=== PATIENT | male | born 1980 | race Caucasian/White ===

== ENCOUNTER 2017-01-23 14:38 | Inpatient (IN) | payer MEDICAID ==
[2017-01-23] MEDS ORDERED: Sodium Chloride 0.9% 10 ML Syringe FLUSH PRN ×2 (14:50)
--- NOTE | 2017-01-23 14:58 | EDM.PDOC ---
ED HPI GENERAL MEDICAL PROBLEM - General Chief Complaint: Headache Stated Complaint: UNABLE TO URINATE, WEAKNESS, SOB Time Seen by Provider: 01/23/17 14:40 Source of Information: Reports: Patient History Limitations: Reports: Other (no old records immediately available, from [place].) - History of Present Illness INITIAL COMMENTS - FREE TEXT/NARRATIVE: 36 yo male 1/2 ppd smoker from [place], [place] presents from his home for evaluation of diaphoresis, cough, mild SOB, and a TRAORE that has been progressive for a couple of days. Is taking Aleve one every 4 hrs and drinking Gatorade. Has no doctor yet states that "every doctor in [place] is a quack" which is why he came here today. Is here alone. Is on no other medication besides Aleve and more recently Excedrin Migraine. Reports not urinating since yesterday. Onset: Gradual Onset Date: 01/21/17 Duration: Day(s):, Getting Worse Location: Reports: Head, Chest Quality: Reports: Ache (headache) Severity: Moderate Improves with: Reports: Medication (Aleve) Worsens with: Reports: Other (Time, exertion) Context: Reports: Other (unknown) Associated Symptoms: Reports: Cough (Dry), Diaphoresis (intermittently, bret at night.), Headaches, Shortness of Breath (constantly, bret with exertion. ). Denies: Nausea/Vomiting Treatments [employer]ET [employer]SEM[employer]ER: Reports: NSAIDS (Aleve or Excedrin Migraine) Headache Pain Score (Numeric/FACES): 5 - Related Data Allergies Allergy/AdvReac Type Severity Reaction Status Date / Time No Known Allergies Allergy Verified 01/23/17 14:45 Home Meds: Home Meds Naproxen Sodium [Aleve] 220 mg PO Q4HR PRN 01/23/17 [History] Social & Family History - Tobacco Use Smoking Status *Q: Current Every Day Smoker Years of Tobacco use: 20 Packs/Tins Daily: 0.5 - Caffeine Use Caffeine Use: Reports: None - Recreational Drug Use Recreational Drug Use: No ED ROS GENERAL - Review of Systems Review Of Systems: See Below Constitutional: Reports: Malaise, Weakness, Diaphoresis, Decreased Appetite. Denies: Fever, Chills HEENT: Reports: No Symptoms Respiratory: Reports: Shortness of Breath, Cough (dry). Denies: Wheezing, Sputum, Hemoptysis Cardiovascular: Reports: No Symptoms (Unaware of his tachycardia) Endocrine: Reports: No Symptoms GI/Abdominal: Reports: Decreased Appetite. Denies: Constipation, Diarrhea, Hematemesis, Hematochezia, Melena, Nausea, Stool Incontinence, Vomiting : Reports: Other (Decreased urination, none since yesterday reported.) Musculoskeletal: Reports: No Symptoms Skin: Reports: Diaphoresis (at times, bed clothes wet at night.). Denies: Rash Neurological: Reports: No Symptoms Psychiatric: Reports: No Symptoms ED EXAM, GENERAL - Physical Exam Exam: See Below Exam Limited By: No Limitations General Appearance: Alert, WD/WN, No Apparent Distress Eye Exam: Bilateral Eye: Normal Inspection, PERRL Ears: Normal External Exam, Normal Canal, Hearing Grossly Normal, Normal TMs Ear Exam: Bilateral Ear: Auricle Normal, Canal Normal, TM normal Nose: Normal Inspection, Normal Mucosa, No Blood Throat/Mouth: Normal Inspection, Normal Lips, Normal Oropharynx, Normal Voice, No Airway Compromise, Other (poor dentitian) Head: Atraumatic, Normocephalic Neck: Normal Inspection, Supple, Non-Tender Respiratory/Chest: No Respiratory Distress, Lungs Clear, Normal Breath Sounds, No Accessory Muscle Use, Chest Non-Tender, Other (Frequent dry cough.) Cardiovascular: Regular Rate, Rhythm, No Edema, No JVD, No Murmur, No Rub, Tachycardia GI/Abdominal: Normal Bowel Sounds, Soft, Non-Tender, No Distention Back Exam: Normal Inspection. No: CVA Tenderness (R), CVA Tenderness (L) Extremities: Normal Inspection, Normal Range of Motion, Non-Tender, No Pedal Edema Neurological: Alert, Oriented, CN II-XII Intact, Normal Cognition, Normal Gait, No Motor/Sensory Deficits Psychiatric: Normal Affect, Normal Mood Skin Exam: Warm, Dry, Intact, Normal Color, No Rash Lymphatic: No Adenopathy Course - Vital Signs Text/Narrative:: Dr. Denson called @ 1555h Last Recorded V/S: Last Vital Signs Temp 36.9 C 01/23/17 14:48 Pulse 139 H 01/23/17 14:48 Resp 20 01/23/17 14:48 BP 135/95 H 01/23/17 14:48 Pulse Ox 96 01/23/17 14:48 - Orders/Labs/Meds Orders: Active Orders 24 hr Category Date Time Status Cardiac Monitoring [RC] .As Directed Care 01/23/17 14:45 Active Chest 2V [CR] Stat Exams 01/23/17 14:52 Taken CULTURE BLOOD [BC] Urgent Lab 01/23/17 15:43 Received CULTURE BLOOD [BC] Urgent Lab 01/23/17 15:50 Received Levofloxacin/Dextrose 5%-Water [Levaquin in D5W 750 MG/ Med 01/23/17 15:30 Active 150 ML] 750 mg Premix Bag 1 bag IV Q24H Sodium Chloride 0.9% [Saline Flush] Med 01/23/17 14:50 Active 10 ml FLUSH ASDIRECTED PRN Sodium Chloride 0.9% [Saline Flush] Med 01/23/17 14:50 Active 10 ml FLUSH ASDIRECTED PRN Blood Culture x2 Reflex Set [OM.PC] Urgent Oth 01/23/17 15:22 Ordered Saline Lock Insert [OM.PC] Routine Oth 01/23/17 14:50 Ordered Saline Lock Insert [OM.PC] Routine Oth 01/23/17 14:50 Ordered Medication Orders Levofloxacin/Dextrose 750 mg/ (Premix) 150 mls @ 100 mls/hr IV Q24H HAILEE Last Admin: 01/23/17 15:51 Dose: 100 mls/hr Sodium Chloride (Saline Flush) 10 ml FLUSH ASDIRECTED PRN PRN Reason: Keep Vein Open Last Admin: 01/23/17 15:36 Dose: 10 ml Sodium Chloride (Saline Flush) 10 ml FLUSH ASDIRECTED PRN PRN Reason: Keep Vein Open Labs: Laboratory Tests 01/23/17 01/23/17 01/23/17 Range/Units 15:00 15:00 15:00 WBC 23.9 H (4.5-12.0) X10-3/uL RBC 4.90 (4.30-5.75) x10(6)uL Hgb 14.8 (11.5-15.5) g/dL Hct 44.3 (30.0-51.3) % MCV 90.4 (80-96) fL MCH 30.1 (27.7-33.6) pg MCHC 33.3 (32.2-35.4) g/dL RDW 13.0 (11.5-15.5) % Plt Count 369 (125-369) X10(3)uL D-Dimer, Quantitative (100-400) ng/mL Sodium 127 L (135-145) mmol/L Potassium 3.6 (3.5-5.3) mmol/L Chloride 97 L (100-110) mmol/L Carbon Dioxide 22 L (23-29) mmol/L BUN 14 (5-20) mg/dL Creatinine 1.1 (0.6-1.3) mg/dL Est Cr Clr Drug Dosing 106.90 mL/min Estimated GFR (MDRD) > 60 (>60) BUN/Creatinine Ratio 12.7 (9-20) Glucose 153 H (80-116) mg/dL Lactic Acid (0.5-2.2) mmol/L Calcium 11.3 H (8.6-10.2) mg/dL Total Bilirubin 0.8 (0.1-1.3) mg/dL AST 46 H (5-27) IU/L ALT 48 H (14-26) IU/L Alkaline Phosphatase 108 (56-112) IU/L Troponin I < 0.01 L (0.02-0.06) NG/ML Total Protein 7.6 (6.0-8.0) g/dL Albumin 3.2 L (3.5-5.2) g/dL Globulin 4.4 g/dL Albumin/Globulin Ratio 0.7 TSH, Ultra Sensitive (0.4-5.5) nlU/mL Urine Color (YELLOW) Urine Appearance (CLEAR) Urine pH (5.0-6.5) Ur Specific [place] (1.010-1.025) Urine Protein (NEGATIVE) mg/dL Urine Glucose (UA) (NEGATIVE) mg/dL Urine Ketones (NEGATIVE) mg/dL Urine Occult Blood (NEGATIVE) Urine Nitrite (NEGATIVE) Urine Bilirubin (NEGATIVE) Urine Urobilinogen (NEGATIVE) mg/dL Ur Leukocyte Esterase (NEGATIVE) Urine RBC (0) Urine WBC (0) Ur Squamous Epith Cells (NS,R,O) Amorphous Sediment Urine Bacteria (NS) Urine Mucus (NS) Urine Opiates Screen (NEGATIVE) Ur Oxycodone Screen (NEGATIVE) Ur Propoxyphene Screen (NEGATIVE) Ur Barbituates Screen (NEGATIVE) Ur Tricyclics Screen (NEGATIVE) Ur Phencyclidine Scrn (NEGATIVE) Ur Amphetamine Screen (NEGATIVE) Urine MDMA Screen (NEGATIVE) U Benzodiazepines Scrn (NEGATIVE) U Cocaine Metab Screen (NEGATIVE) U Marijuana (THC) Screen (NEGATIVE) 01/23/17 01/23/17 01/23/17 Range/Units 15:00 15:00 15:00 WBC (4.5-12.0) X10-3/uL RBC (4.30-5.75) x10(6)uL Hgb (11.5-15.5) g/dL Hct (30.0-51.3) % MCV (80-96) fL MCH (27.7-33.6) pg MCHC (32.2-35.4) g/dL RDW (11.5-15.5) % Plt Count (125-369) X10(3)uL D-Dimer, Quantitative 2560 H (100-400) ng/mL Sodium (135-145) mmol/L Potassium (3.5-5.3) mmol/L Chloride (100-110) mmol/L Carbon Dioxide (23-29) mmol/L BUN (5-20) mg/dL Creatinine (0.6-1.3) mg/dL Est Cr Clr Drug Dosing mL/min Estimated GFR (MDRD) (>60) BUN/Creatinine Ratio (9-20) Glucose (80-116) mg/dL Lactic Acid 2.2 (0.5-2.2) mmol/L Calcium (8.6-10.2) mg/dL Total Bilirubin (0.1-1.3) mg/dL AST (5-27) IU/L ALT (14-26) IU/L Alkaline Phosphatase (56-112) IU/L Troponin I (0.02-0.06) NG/ML Total Protein (6.0-8.0) g/dL Albumin (3.5-5.2) g/dL Globulin g/dL Albumin/Globulin Ratio TSH, Ultra Sensitive 0.22 L (0.4-5.5) nlU/mL Urine Color (YELLOW) Urine Appearance (CLEAR) Urine pH (5.0-6.5) Ur Specific [place] (1.010-1.025) Urine Protein (NEGATIVE) mg/dL Urine Glucose (UA) (NEGATIVE) mg/dL Urine Ketones (NEGATIVE) mg/dL Urine Occult Blood (NEGATIVE) Urine Nitrite (NEGATIVE) Urine Bilirubin (NEGATIVE) Urine Urobilinogen (NEGATIVE) mg/dL Ur Leukocyte Esterase (NEGATIVE) Urine RBC (0) Urine WBC (0) Ur Squamous Epith Cells (NS,R,O) Amorphous Sediment Urine Bacteria (NS) Urine Mucus (NS) Urine Opiates Screen (NEGATIVE) Ur Oxycodone Screen (NEGATIVE) Ur Propoxyphene Screen (NEGATIVE) Ur Barbituates Screen (NEGATIVE) Ur Tricyclics Screen (NEGATIVE) Ur Phencyclidine Scrn (NEGATIVE) Ur Amphetamine Screen (NEGATIVE) Urine MDMA Screen (NEGATIVE) U Benzodiazepines Scrn (NEGATIVE) U Cocaine Metab Screen (NEGATIVE) U Marijuana (THC) Screen (NEGATIVE) 01/23/17 01/23/17 Range/Units 15:12 15:12 WBC (4.5-12.0) X10-3/uL RBC (4.30-5.75) x10(6)uL Hgb (11.5-15.5) g/dL Hct (30.0-51.3) % MCV (80-96) fL MCH (27.7-33.6) pg MCHC (32.2-35.4) g/dL RDW (11.5-15.5) % Plt Count (125-369) X10(3)uL D-Dimer, Quantitative (100-400) ng/mL Sodium (135-145) mmol/L Potassium (3.5-5.3) mmol/L Chloride (100-110) mmol/L Carbon Dioxide (23-29) mmol/L BUN (5-20) mg/dL Creatinine (0.6-1.3) mg/dL Est Cr Clr Drug Dosing mL/min Estimated GFR (MDRD) (>60) BUN/Creatinine Ratio (9-20) Glucose (80-116) mg/dL Lactic Acid (0.5-2.2) mmol/L Calcium (8.6-10.2) mg/dL Total Bilirubin (0.1-1.3) mg/dL AST (5-27) IU/L ALT (14-26) IU/L Alkaline Phosphatase (56-112) IU/L Troponin I (0.02-0.06) NG/ML Total Protein (6.0-8.0) g/dL Albumin (3.5-5.2) g/dL Globulin g/dL Albumin/Globulin Ratio TSH, Ultra Sensitive (0.4-5.5) nlU/mL Urine Color Yellow (YELLOW) Urine Appearance Slightly cloudy (CLEAR) Urine pH 5.0 (5.0-6.5) Ur Specific [place] 1.025 (1.010-1.025) Urine Protein 100 H (NEGATIVE) mg/dL Urine Glucose (UA) 50 H (NEGATIVE) mg/dL Urine Ketones Negative (NEGATIVE) mg/dL Urine Occult Blood Large H (NEGATIVE) Urine Nitrite Negative (NEGATIVE) Urine Bilirubin Small H (NEGATIVE) Urine Urobilinogen >=12 H (NEGATIVE) mg/dL Ur Leukocyte Esterase Negative (NEGATIVE) Urine RBC 20-30 H (0) Urine WBC 0-5 (0) Ur Squamous Epith Cells Occasional (NS,R,O) Amorphous Sediment Few Urine Bacteria Few H (NS) Urine Mucus Moderate H (NS) Urine Opiates Screen Negative (NEGATIVE) Ur Oxycodone Screen Negative (NEGATIVE) Ur Propoxyphene Screen Negative (NEGATIVE) Ur Barbituates Screen Negative (NEGATIVE) Ur Tricyclics Screen Negative (NEGATIVE) Ur Phencyclidine Scrn Negative (NEGATIVE) Ur Amphetamine Screen Negative (NEGATIVE) Urine MDMA Screen Negative (NEGATIVE) U Benzodiazepines Scrn Negative (NEGATIVE) U Cocaine Metab Screen Negative (NEGATIVE) U Marijuana (THC) Screen Negative (NEGATIVE) Meds: Medications Generic Name Dose Route Start Last Admin Trade Name Freq PRN Reason Stop Dose Admin Levofloxacin/Dextrose 750 mg/ 150 mls @ 100 mls/hr 01/23/17 15:30 01/23/17 15 :51 Premix IV 100 mls/hr Q24H HAILEE Administration Sodium Chloride 10 ml 01/23/17 14:50 01/23/17 15:36 Saline Flush FLUSH 10 ml ASDIRECTED PRN Administration Keep Vein Open Sodium Chloride 10 ml 01/23/17 14:50 Saline Flush FLUSH ASDIRECTED PRN Keep Vein Open Discontinued Medications Generic Name Dose Route Start Last Admin Trade Name Freq PRN Reason Stop Dose Admin Lactated Ringer's 1,000 mls @ 1,000 mls/hr 01/23/17 15:10 01/23/17 15:21 Ringers, Lactated IV 01/23/17 16:09 1,000 mls/hr BOLUS ONE Administration - Radiology Interpretation Free Text/Narrative:: CXR-pneumonia L > R Departure - Departure Time of Disposition: 16:30 Disposition: Admitted As Inpatient 65 Condition: Fair Clinical Impression: Mild dehydration Pneumonia Qualifiers: Pneumonia type: due to unspecified organism Laterality: bilateral Lung location : unspecified part of lung Qualified Code(s): J18.9 - Pneumonia, unspecified organism Hematuria Qualifiers: Hematuria type: unspecified type Qualified Code(s): R31.9 - Hematuria, unspecified - Discharge Information Referrals: PCP,Not In Area [Primary Care Provider] - Forms: ED Department Discharge - My Orders Last 24 Hours: My Active Orders 01/23/17 14:45 Cardiac Monitoring [RC] .As Directed 01/23/17 14:50 Sodium Chloride 0.9% [Saline Flush] 10 ml FLUSH ASDIRECTED PRN Sodium Chloride 0.9% [Saline Flush] 10 ml FLUSH ASDIRECTED PRN Saline Lock Insert [OM.PC] Routine Saline Lock Insert [OM.PC] Routine 01/23/17 14:52 Chest 2V [CR] Stat 01/23/17 15:22 Blood Culture x2 Reflex Set [OM.PC] Urgent 01/23/17 15:30 Levofloxacin/Dextrose 5%-Water [Levaquin in D5W 750 MG/150 ML] 750 mg Premix Bag 1 bag IV Q24H 01/23/17 15:43 CULTURE BLOOD [BC] Urgent 01/23/17 15:50 CULTURE BLOOD [BC] Urgent - Assessment/Plan Last 24 Hours: My Active Orders 01/23/17 14:45 Cardiac Monitoring [RC] .As Directed 01/23/17 14:50 Sodium Chloride 0.9% [Saline Flush] 10 ml FLUSH ASDIRECTED PRN Sodium Chloride 0.9% [Saline Flush] 10 ml FLUSH ASDIRECTED PRN Saline Lock Insert [OM.PC] Routine Saline Lock Insert [OM.PC] Routine 01/23/17 14:52 Chest 2V [CR] Stat 01/23/17 15:22 Blood Culture x2 Reflex Set [OM.PC] Urgent 01/23/17 15:30 Levofloxacin/Dextrose 5%-Water [Levaquin in D5W 750 MG/150 ML] 750 mg Premix Bag 1 bag IV Q24H 01/23/17 15:43 CULTURE BLOOD [BC] Urgent 01/23/17 15:50 CULTURE BLOOD [BC] Urgent
[2017-01-23] MEDS ORDERED: Lactated Ringers 1,000 ML IV ONE (15:10)
[2017-01-23] MEDS ORDERED: Levofloxacin/Dextrose 5%-Water 750 MG in Premix Bag 1 BAG IV SCH (15:30)
[2017-01-23] MEDS ORDERED: Albuterol 0.083% 2.5 MG/3 ML Neb Soln NEB PRN (17:40)
[2017-01-23] MEDS ORDERED: Ondansetron 4 MG Tab.DIS PO PRN (17:40)
--- NOTE | 2017-01-23 17:49 | PCM.HP ---
H&P History of Present Illness - General Date of Service: 01/23/17 Admit Problem/Dx: Admission Diagnosis/Problem Admission Diagnosis/Problem Pneumonia Source of Information: Patient History Limitations: Reports: No Limitations - History of Present Illness Initial Comments - Free Text/Narative: This is a 36-year-old male patient from [facility]. He said 5 days of feeling weak, diaphoretic, headache, fevers, chills, decreased appetite, cough and some shortness of breath. He was exposed to his daughter 2 weeks ago who had pneumonia. He was seen in the ER and diagnosed with a left lower lobe pneumonia with a little bit on the right middle lobe. Greater on the left than on the right. Headache Pain Score (Numeric/FACES): 5 - Related Data Allergies/Adverse Reactions: Allergies Allergy/AdvReac Type Severity Reaction Status Date / Time No Known Allergies Allergy Verified 01/23/17 14:45 Home Medications: Home Meds Naproxen Sodium [Aleve] 220 mg PO Q4HR PRN 01/23/17 [History] Past Medical History - Past Health History Medical/Surgical History: Denies Medical/Surgical History Social & Family History - Tobacco Use Smoking Status *Q: Current Every Day Smoker Years of Tobacco use: 20 Packs/Tins Daily: 0.5 - Caffeine Use Caffeine Use: Reports: None - Recreational Drug Use Recreational Drug Use: No H&P Review of Systems - Review of Systems: Review Of Systems: See Below General: Reports: Fever, Chills, Malaise, Weakness, Night Sweats, Diaphoresis HEENT: Reports: No Symptoms Pulmonary: Reports: Shortness of Breath, Cough, Sputum. Denies: Wheezing, Pleuritic Chest Pain, Hemoptysis Cardiovascular: Reports: No Symptoms Gastrointestinal: Reports: No Symptoms Genitourinary: Reports: No Symptoms Musculoskeletal: Reports: No Symptoms Skin: Reports: No Symptoms Psychiatric: Reports: No Symptoms Neurological: Reports: No Symptoms Hematologic/Lymphatic: Reports: No Symptoms Immunologic: Reports: No Symptoms Exam - Exam Exam: See Below - Vital Signs Vital Signs: Last Vital Signs Temp 98.4 F 01/23/17 14:48 Pulse 139 H 01/23/17 14:48 Resp 20 01/23/17 14:48 BP 135/95 H 01/23/17 14:48 Pulse Ox 96 01/23/17 14:48 Weight: 269 lb - Exam General: Alert, Oriented, Cooperative HEENT: PERRLA, Hearing Intact, Mucosa Moist & [place], Posterior Pharynx Clear, TMs Clear Neck: Supple, Trachea Midline Lungs: Normal Respiratory Effort, Decreased Breath Sounds, Rales (Left) Cardiovascular: Regular Rate, Regular Rhythm, Normal S1, Normal S2, Tachycardia. No: Bradycardia, Systolic Murmur, Diastolic Murmur GI/Abdominal Exam: Normal Bowel Sounds, Soft, Non-Tender, No Distention Back Exam: Normal Inspection, Full Range of Motion Extremities: Normal Inspection, No Pedal Edema Skin: Warm, Dry, Intact Neurological: Normal Gait, Normal Speech Neuro Extensive - Mental Status: Alert, Oriented x3, Normal Mood/Affect, Normal Cognition Neuro Extensive - Motor, Sensory, Reflexes: Normal Gait Psychiatric: Alert, Normal Affect, Normal Mood - Patient Data Result Diagrams: 01/23/17 15:00 01/23/17 15:00 *Q Meaningful Use (ADM) - VTE *Q VTE Criteria *Q: - Stroke *Q Stroke Criteria *Q: - AMI *Q AMI Criteria *Q: - Problem List (1) Hematuria SNOMED Code(s): 07984914 ICD Code: R31.9 - HEMATURIA, UNSPECIFIED Status: Acute Current Visit: Yes Qualifiers: Hematuria type: unspecified type Qualified Code(s): R31.9 - Hematuria, unspecified (2) Mild dehydration SNOMED Code(s): 2805018987540 ICD Code: E86.0 - DEHYDRATION Status: Acute Current Visit: Yes (3) Pneumonia SNOMED Code(s): 201879560 ICD Code: J18.9 - PNEUMONIA, UNSPECIFIED ORGANISM Status: Acute Current Visit: Yes Qualifiers: Pneumonia type: due to unspecified organism Laterality: bilateral Lung location: unspecified part of lung Qualified Code(s): J18.9 - Pneumonia, unspecified organism Problem List Initiated/Reviewed/Updated: Yes Orders Last 24hrs: Active Orders 24 hr Category Date Time Status Patient Status [ADT] Routine ADT 01/23/17 17:40 Ordered Oxygen Therapy [RC] PRN Care 01/23/17 17:40 Ordered RT Aerosol Therapy [RC] ASDIRECTED Care 01/23/17 17:41 Ordered Up ad Stephania [RC] ASDIRECTED Care 01/23/17 17:40 Ordered VTE/DVT Education [RC] Per Unit Routine Care 01/23/17 17:40 Ordered Vital Signs [RC] Q4H Care 01/23/17 17:40 Ordered Regular Diet [DIET] Diet 01/23/17 Dinner Ordered CBC WITH AUTO DIFF [HEME] AM Lab 01/24/17 05:11 Ordered COMPREHENSIVE METABOLIC PN,CMP [CHEM] AM Lab 01/24/17 05:11 Ordered CULTURE SPUTUM + SMEAR [RM] Stat Lab 01/23/17 17:40 Uncollected Albuterol [Proventil Neb Soln] Med 01/23/17 17:40 Ordered 2.5 mg NEB Q4H PRN Codeine/guaiFENesin [Robitussin AC] Med 01/23/17 17:44 Ordered 5 ml PO Q6H PRN Ibuprofen [Motrin] Med 01/23/17 17:40 Ordered 600 mg PO Q6H PRN Levofloxacin/Dextrose 5%-Water [Levaquin in D5W 750 MG/ Med 01/23/17 17:45 Ordered 150 ML] 750 mg Premix Bag 1 bag IV Q24H Ondansetron [Zofran ODT] Med 01/23/17 17:40 Ordered 4 mg PO Q4H PRN Sodium Chloride 0.9% @ 150 MLS/HR (1000ml) Med 01/23/17 17:45 Ordered Sodium Chloride 0.9% [Normal Saline] 1,000 ml IV ASDIRECTED Resuscitation Status Routine Resus Stat 01/23/17 17:40 Ordered Medication Orders Albuterol (Proventil Neb Soln) 2.5 mg NEB Q4H PRN PRN Reason: Shortness Of Breath/wheezing Levofloxacin/Dextrose 750 mg/ (Premix) 150 mls @ 100 mls/hr IV Q24H HAILEE Last Admin: 01/23/17 15:51 Dose: 100 mls/hr Levofloxacin/Dextrose 750 mg/ (Premix) 150 mls @ 100 mls/hr IV Q24H HAILEE Sodium Chloride (Normal Saline) 1,000 mls @ 150 mls/hr IV ASDIRECTED HAILEE Ibuprofen (Motrin) 600 mg PO Q6H PRN PRN Reason: Pain (mild 1-3) Ondansetron HCl (Zofran Odt) 4 mg PO Q4H PRN PRN Reason: nausea, able to take PO Sodium Chloride (Saline Flush) 10 ml FLUSH ASDIRECTED PRN PRN Reason: Keep Vein Open Assessment/Plan Comment:: 1. Admit to inpatient. 2. Levaquin 750 iv daily. 3. Blood cultures, sputum cultures 4. Normal saline 150 mL an hour. 5. Up ad stephania. 6. Regular diet.
[2017-01-23] MEDS ORDERED: Codeine/guaiFENesin 100-10 MG/5 ML Syrup 5 ML Cup ONE (18:00)
[2017-01-23] MEDS ORDERED: Ibuprofen 600 MG Tab ONE (18:01)
[2017-01-23] MEDS: Ibuprofen 600 MG Tab PO PRN (18:03)
[2017-01-23] MEDS: Codeine/guaiFENesin 100-10 MG/5 ML Syrup 5 ML Cup PO PRN (18:04)
[2017-01-23] MEDS: Sodium Chloride 0.9% 1,000 ML IV SCH (21:22)
[2017-01-24] MEDS: Ibuprofen 600 MG Tab PO PRN ×3 (00:19→20:06)
[2017-01-24] MEDS: Sodium Chloride 0.9% 1,000 ML IV SCH ×3 (03:44→20:01)
--- NOTE | 2017-01-24 07:58 | PCM.PN ---
- General Info Date of Service: 01/24/17 Admission Dx/Problem (Free Text): Patient states his cough is dry 3 has not been able to give a sputum. He says he feels little short of breath lying down and when he walks. Denies fevers, chills or diaphoresis. Denies pleuritic chest pain. Patient states he never received a nebulizer since he's been in. - Patient Data Vitals - Most Recent: Last Vital Signs Temp 98.8 F 01/24/17 01:00 Pulse 110 H 01/24/17 01:00 Resp 18 01/24/17 01:00 BP 125/89 01/24/17 01:00 Pulse Ox 92 L 01/24/17 01:00 Weight - Most Recent: 194 lb 9.6 oz I&O - Last 24 Hours: Intake & Output 01/23/17 01/24/17 01/24/17 22:59 06:59 14:59 Intake Total 727 1160 Output Total 0 Balance 727 1160 Lab Results Last 24 Hours: Laboratory Results - last 24 hr 01/24/17 01/24/17 Range/Units 06:40 06:40 WBC 19.9 H (4.5-12.0) X10-3/uL RBC 4.57 (4.30-5.75) x10(6)uL Hgb 13.5 (11.5-15.5) g/dL Hct 41.0 (30.0-51.3) % MCV 89.6 (80-96) fL MCH 29.5 (27.7-33.6) pg MCHC 32.9 (32.2-35.4) g/dL RDW 12.9 (11.5-15.5) % Plt Count 344 (125-369) X10(3)uL MPV 7.7 (7.4-10.4) fL Add Manual Diff Yes Sodium 132 L (135-145) mmol/L Potassium 3.4 L (3.5-5.3) mmol/L Chloride 103 D (100-110) mmol/L Carbon Dioxide 21 L (23-29) mmol/L BUN 11 (5-20) mg/dL Creatinine 0.8 (0.6-1.3) mg/dL Est Cr Clr Drug Dosing 146.99 mL/min Estimated GFR (MDRD) > 60 (>60) BUN/Creatinine Ratio 13.8 (9-20) Glucose 114 (80-116) mg/dL Calcium 10.6 H (8.6-10.2) mg/dL Total Bilirubin 0.8 (0.1-1.3) mg/dL AST 43 H (5-27) IU/L ALT 48 H (14-26) IU/L Alkaline Phosphatase 105 (56-112) IU/L Total Protein 6.7 (6.0-8.0) g/dL Albumin 2.7 L (3.5-5.2) g/dL Globulin 4.0 g/dL Albumin/Globulin Ratio 0.7 Med Orders - Current: Current Medications Guaifenesin/Codeine Phosphate (Robitussin Ac) 5 ml PO Q6H PRN PRN Reason: Cough Last Admin: 01/23/17 18:04 Dose: 5 ml Levofloxacin/Dextrose 750 mg/ (Premix) 150 mls @ 100 mls/hr IV Q24H [facility] Sodium Chloride (Normal Saline) 1,000 mls @ 150 mls/hr IV ASDIRECTED [facility] Last Admin: 01/24/17 03:44 Dose: 150 mls/hr Ibuprofen (Motrin) 600 mg PO Q6H PRN PRN Reason: Pain (mild 1-3) Last Admin: 01/24/17 00:19 Dose: 600 mg Ondansetron HCl (Zofran Odt) 4 mg PO Q4H PRN PRN Reason: nausea, able to take PO Sodium Chloride (Saline Flush) 10 ml FLUSH ASDIRECTED PRN PRN Reason: Keep Vein Open Discontinued Medications Albuterol (Proventil Neb Soln) 2.5 mg NEB Q4H PRN PRN Reason: Shortness Of Breath/wheezing Guaifenesin/Codeine Phosphate (Robitussin Ac) Confirm Administered Dose 5 ml .ROUTE .STK-MED ONE Stop: 01/23/17 18:01 Last Admin: 01/23/17 18:20 Dose: Not Given Lactated Ringer's (Ringers, Lactated) 1,000 mls @ 1,000 mls/hr IV BOLUS ONE Stop: 01/23/17 16:09 Last Admin: 01/23/17 15:21 Dose: 1,000 mls/hr Levofloxacin/Dextrose 750 mg/ (Premix) 150 mls @ 100 mls/hr IV Q24H [facility] Last Admin: 01/23/17 15:51 Dose: 100 mls/hr Ibuprofen (Motrin) Confirm Administered Dose 600 mg .ROUTE .STK-MED ONE Stop: 01/23/17 18:02 Last Admin: 01/23/17 18:20 Dose: Not Given Sodium Chloride (Saline Flush) 10 ml FLUSH ASDIRECTED PRN PRN Reason: Keep Vein Open Last Admin: 01/23/17 15:36 Dose: 10 ml - Exam General: Alert, Oriented, Cooperative Lungs: Normal Respiratory Effort, Crackles (Left middle and lower lobe. Right lower lobe.) Cardiovascular: Regular Rate, Regular Rhythm, No Murmurs, Tachycardia Extremities: No Pedal Edema Psy/Mental Status: Alert, Normal Affect, Normal Mood - Problem List & Annotations (1) Hematuria SNOMED Code(s): 29537889 Code(s): R31.9 - HEMATURIA, UNSPECIFIED Status: Acute Current Visit: Yes Qualifiers: Hematuria type: unspecified type Qualified Code(s): R31.9 - Hematuria, unspecified (2) Mild dehydration SNOMED Code(s): 5246239042544 Code(s): E86.0 - DEHYDRATION Status: Acute Current Visit: Yes (3) Pneumonia SNOMED Code(s): 210657551 Code(s): J18.9 - PNEUMONIA, UNSPECIFIED ORGANISM Status: Acute Current Visit: Yes Qualifiers: Pneumonia type: due to unspecified organism Laterality: bilateral Lung location: unspecified part of lung Qualified Code(s): J18.9 - Pneumonia, unspecified organism (4) Hyponatremia SNOMED Code(s): 13475848 Code(s): E87.1 - HYPO-OSMOLALITY AND HYPONATREMIA Status: Acute Current Visit: Yes - Problem List Review Problem List Initiated/Reviewed/Updated: Yes - My Orders Last 24 Hours: My Active Orders 01/23/17 17:40 Patient Status [ADT] Routine Oxygen Therapy [RC] PRN Up ad Stephania [RC] ASDIRECTED Vital Signs [RC] 00,04,08,12,16,20 CULTURE SPUTUM + SMEAR [RM] Stat Ibuprofen [Motrin] 600 mg PO Q6H PRN Ondansetron [Zofran ODT] 4 mg PO Q4H PRN Resuscitation Status Routine 01/23/17 17:41 RT Aerosol Therapy [RC] ASDIRECTED 01/23/17 17:44 Codeine/guaiFENesin [Robitussin AC] 5 ml PO Q6H PRN 01/23/17 17:45 Sodium Chloride 0.9% [Normal Saline] 1,000 ml IV ASDIRECTED 01/23/17 Dinner Regular Diet [DIET] 01/24/17 06:40 CBC WITH AUTO DIFF [HEME] AM 01/24/17 08:00 Albuterol [Proventil Neb Soln] 2.5 mg NEB Q4H 01/24/17 16:00 Levofloxacin/Dextrose 5%-Water [Levaquin in D5W 750 MG/150 ML] 750 mg Premix Bag 1 bag IV Q24H - Plan Plan:: 1. I change the nebulizer from when necessary to 4 times a day and when necessary so he will get them. 2. Decrease IV fluid rate to 1 25 mL an hour with normal saline. 3. Continue Levaquin. 4. Up ad stephania. Encouraged patient to be up in the chair and walking. 5. Recheck BMP/CBC in the a.m.
[2017-01-24] MEDS ORDERED: traZODone 100 MG Tab PO SCH (08:15)
[2017-01-24] MEDS: Albuterol 0.083% 2.5 MG/3 ML Neb Soln NEB SCH ×4 (08:23→20:06)
[2017-01-24] MEDS: Levofloxacin/Dextrose 5%-Water 750 MG in Premix Bag 1 BAG IV SCH (16:18)
--- NOTE | 2017-01-24 16:44 | CR ---
INDICATION: Cough. CHEST: PA and lateral views of the chest were obtained 01/23/2017. No comparisons were available. The heart appeared normal in size and shape. Mediastinum and bony thorax were essentially unremarkable. Overlying EKG leads are noted. Areas of suspicious infiltration are noted in the right upper lobe posterolaterally and the left upper lobe posterolaterally. Infiltration centrally is also seen. The peripheral areas of infiltrate are fairly large, especially on the left, with central relative decreased density raising question of large abscess formation. The possibility of fungal disease would be a consideration with this appearance, although metastatic deposits could also be present. Findings should be correlated clinically. Additionally, there appears to be opacification at the left costophrenic angle, compatible with infiltrate in that area also. IMPRESSION: Hilar and peripheral areas of infiltration suspicious for fungal disease, although metastatic neoplastic process cannot be excluded. MTDD
[2017-01-24] MEDS: Codeine/guaiFENesin 100-10 MG/5 ML Syrup 5 ML Cup PO PRN (20:07)
[2017-01-24] MEDS: traZODone 50 MG Tab PO SCH (22:01)
[2017-01-25] MEDS: Albuterol 0.083% 2.5 MG/3 ML Neb Soln NEB SCH ×7 (00:20→23:57)
[2017-01-25] MEDS: Sodium Chloride 0.9% 1,000 ML IV SCH (03:59)
[2017-01-25] MEDS: Ibuprofen 600 MG Tab PO PRN ×2 (08:17→17:06)
[2017-01-25] MEDS: Codeine/guaiFENesin 100-10 MG/5 ML Syrup 5 ML Cup PO PRN (08:17)
--- NOTE | 2017-01-25 09:50 | PCM.PN ---
- General Info Date of Service: 01/25/17 Admission Dx/Problem (Free Text): Patient states his night sweats are better. Still has a dry cough and AMI be worse. His breathing is a bit better he states. No fevers, chills, nasal congestion. - Patient Data Vitals - Most Recent: Last Vital Signs Temp 97.6 F 01/25/17 04:00 Pulse 100 01/25/17 07:37 Resp 16 01/25/17 04:00 BP 132/78 01/25/17 04:00 Pulse Ox 99 01/25/17 07:34 Weight - Most Recent: 194 lb 9.6 oz I&O - Last 24 Hours: Intake & Output 01/24/17 01/25/17 01/25/17 22:59 06:59 14:59 Intake Total 985 889 Output Total 200 Balance 985 689 Lab Results Last 24 Hours: Laboratory Results - last 24 hr 01/25/17 01/25/17 Range/Units 06:30 06:30 WBC 16.8 H (4.5-12.0) X10-3/uL RBC 3.89 L (4.30-5.75) x10(6)uL Hgb 12.1 (11.5-15.5) g/dL Hct 35.2 (30.0-51.3) % MCV 90.4 (80-96) fL MCH 31.1 (27.7-33.6) pg MCHC 34.4 (32.2-35.4) g/dL RDW 13.1 (11.5-15.5) % Plt Count 311 (125-369) X10(3)uL MPV 7.8 (7.4-10.4) fL Add Manual Diff Yes Neutrophils % (Manual) 78 (46-82) % Band Neutrophils % 5 (0-6) % Lymphocytes % (Manual) 10 L (13-37) % Monocytes % (Manual) 6 (4-12) % Eosinophils % (Manual) 1 (0-5) % Sodium 137 (135-145) mmol/L Potassium 3.5 (3.5-5.3) mmol/L Chloride 108 D (100-110) mmol/L Carbon Dioxide 22 L (23-29) mmol/L BUN 13 (5-20) mg/dL Creatinine 0.8 (0.6-1.3) mg/dL Est Cr Clr Drug Dosing 146.99 mL/min Estimated GFR (MDRD) > 60 (>60) BUN/Creatinine Ratio 16.3 (9-20) Glucose 129 H (80-116) mg/dL Calcium 10.1 (8.6-10.2) mg/dL Med Orders - Current: Current Medications Albuterol (Proventil Neb Soln) 2.5 mg NEB Q4H [facility] Last Admin: 01/25/17 07:30 Dose: 2.5 mg Guaifenesin/Codeine Phosphate (Robitussin Ac) 5 ml PO Q6H PRN PRN Reason: Cough Last Admin: 01/25/17 08:17 Dose: 5 ml Levofloxacin/Dextrose 750 mg/ (Premix) 150 mls @ 100 mls/hr IV Q24H [facility] Last Admin: 01/24/17 16:18 Dose: 100 mls/hr Ibuprofen (Motrin) 600 mg PO Q6H PRN PRN Reason: Pain (mild 1-3) Last Admin: 01/25/17 08:17 Dose: 600 mg Ondansetron HCl (Zofran Odt) 4 mg PO Q4H PRN PRN Reason: nausea, able to take PO Sodium Chloride (Saline Flush) 10 ml FLUSH ASDIRECTED PRN PRN Reason: Keep Vein Open Trazodone HCl (Trazodone) 50 mg PO BEDTIME [facility] Last Admin: 01/24/17 22:01 Dose: 50 mg Discontinued Medications Albuterol (Proventil Neb Soln) 2.5 mg NEB Q4H PRN PRN Reason: Shortness Of Breath/wheezing Guaifenesin/Codeine Phosphate (Robitussin Ac) Confirm Administered Dose 5 ml .ROUTE .STK-MED ONE Stop: 01/23/17 18:01 Last Admin: 01/23/17 18:20 Dose: Not Given Lactated Ringer's (Ringers, Lactated) 1,000 mls @ 1,000 mls/hr IV BOLUS ONE Stop: 01/23/17 16:09 Last Admin: 01/23/17 15:21 Dose: 1,000 mls/hr Levofloxacin/Dextrose 750 mg/ (Premix) 150 mls @ 100 mls/hr IV Q24H [facility] Last Admin: 01/23/17 15:51 Dose: 100 mls/hr Sodium Chloride (Normal Saline) 1,000 mls @ 125 mls/hr IV ASDIRECTED [facility] Last Admin: 01/25/17 03:59 Dose: 150 mls/hr Ibuprofen (Motrin) Confirm Administered Dose 600 mg .ROUTE .STK-MED ONE Stop: 01/23/17 18:02 Last Admin: 01/23/17 18:20 Dose: Not Given Sodium Chloride (Saline Flush) 10 ml FLUSH ASDIRECTED PRN PRN Reason: Keep Vein Open Last Admin: 01/23/17 15:36 Dose: 10 ml Trazodone HCl (Trazodone) 50 mg PO BEDTIME [facility] - Exam General: Alert, Oriented Lungs: Normal Respiratory Effort, Crackles (Very fine left) Cardiovascular: Regular Rate, Regular Rhythm, No Murmurs, Tachycardia Extremities: No Pedal Edema - Problem List & Annotations (1) Hematuria SNOMED Code(s): 34079976 Code(s): R31.9 - HEMATURIA, UNSPECIFIED Status: Acute Current Visit: Yes Qualifiers: Hematuria type: unspecified type Qualified Code(s): R31.9 - Hematuria, unspecified (2) Mild dehydration SNOMED Code(s): 2457084937323 Code(s): E86.0 - DEHYDRATION Status: Acute Current Visit: Yes (3) Pneumonia SNOMED Code(s): 506452024 Code(s): J18.9 - PNEUMONIA, UNSPECIFIED ORGANISM Status: Acute Current Visit: Yes Qualifiers: Pneumonia type: due to unspecified organism Laterality: bilateral Lung location: unspecified part of lung Qualified Code(s): J18.9 - Pneumonia, unspecified organism (4) Hyponatremia SNOMED Code(s): 49965386 Code(s): E87.1 - HYPO-OSMOLALITY AND HYPONATREMIA Status: Acute Current Visit: Yes - Problem List Review Problem List Initiated/Reviewed/Updated: Yes - My Orders Last 24 Hours: My Active Orders 01/24/17 16:00 Levofloxacin/Dextrose 5%-Water [Levaquin in D5W 750 MG/150 ML] 750 mg Premix Bag 1 bag IV Q24H 01/24/17 21:00 traZODone 50 mg PO BEDTIME 01/25/17 09:35 Convert IV to Saline Lock [OM.PC] Routine 01/25/17 09:36 Ang Chest [CT] Routine 01/25/17 09:37 UA W/MICROSCOPIC [URIN] Routine - Plan Plan:: 1. CT chest due to atypical pneumonia and chest x-ray findings. 2. DC IV fluids and saline lock IV. 3. Continue IV antibiotics
[2017-01-25] MEDS ORDERED: Iopamidol 755 Mg/ML 75 ML Bottle IV ONE (13:17)
[2017-01-25] MEDS: Levofloxacin/Dextrose 5%-Water 750 MG in Premix Bag 1 BAG IV SCH (15:59)
[2017-01-25] MEDS ORDERED: Sodium Chloride 0.9% 250 ML IV SCH (16:15)
--- NOTE | 2017-01-25 16:27 | CT ---
INDICATION: Atypical pneumonia. CT CHEST WITH CONTRAST: Spiral 2.5-mm axial sections were obtained through the chest with 71 mL Isovue-370 at 3 mL per second. The examination was obtained . Total Exam DLP = 480.16 mGy-cm. No definite abscess formation is noted - areas of relatively low-density are felt to be lung that is spared from the alveolar infiltration - consolidation. However, follow-up is recommended with chest x-ray and possibly CT as necessary. IMPRESSION: Unusual bilateral pneumonia, etiology indeterminate, question aspiration, question klebsiella. No definite abscess is noted at this time. However, follow-up is recommended with repeat chest x-ray, PA and lateral. Report was called to Dr. Denson at 1420 hours, 01/25/2017. [facility]
[2017-01-25] MEDS: traZODone 50 MG Tab PO SCH (22:11)
[2017-01-26] MEDS: Albuterol 0.083% 2.5 MG/3 ML Neb Soln NEB SCH ×3 (03:37→11:07)
[2017-01-26] MEDS: Ibuprofen 600 MG Tab PO PRN ×2 (04:01→10:57)
[2017-01-26 09:09] VITALS: BP 139/100
--- NOTE | 2017-01-26 09:28 | PCM.PN ---
- General Info Date of Service: 01/26/17 Subjective Update: Patient is doing well this morning,. He still has a cough and sometimes short of breath but denies fever chills or rigors. He feels ready to go back home. Is previously healthy with exception of these pneumonia. Functional Status: Reports: Pain Controlled - Review of Systems General: Reports: No Symptoms HEENT: Reports: No Symptoms Pulmonary: Reports: Shortness of Breath Cardiovascular: Reports: No Symptoms Gastrointestinal: Reports: No Symptoms Genitourinary: Reports: No Symptoms Musculoskeletal: Reports: No Symptoms Skin: Reports: No Symptoms Neurological: Reports: No Symptoms Psychiatric: Reports: No Symptoms - Patient Data Vitals - Most Recent: Last Vital Signs Temp 97.7 F 01/26/17 07:40 Pulse 106 H 01/26/17 07:45 Resp 18 01/26/17 07:40 BP 139/100 H 01/26/17 07:40 Pulse Ox 92 L 01/26/17 07:45 Weight - Most Recent: 88.269 kg I&O - Last 24 Hours: Intake & Output 01/25/17 01/26/17 01/26/17 22:59 06:59 14:59 Intake Total 200 Balance 200 Lab Results Last 24 Hours: Laboratory Results - last 24 hr 01/25/17 01/26/17 Range/Units 14:30 06:20 WBC 17.5 H (4.5-12.0) X10-3/uL RBC 3.87 L (4.30-5.75) x10(6)uL Hgb 12.0 (11.5-15.5) g/dL Hct 34.4 (30.0-51.3) % MCV 88.8 (80-96) fL MCH 31.0 (27.7-33.6) pg MCHC 34.9 (32.2-35.4) g/dL RDW 13.4 (11.5-15.5) % Plt Count 359 (125-369) X10(3)uL MPV 7.6 (7.4-10.4) fL Add Manual Diff Yes Neutrophils % (Manual) 70 (46-82) % Band Neutrophils % 3 (0-6) % Lymphocytes % (Manual) 18 (13-37) % Monocytes % (Manual) 6 (4-12) % Eosinophils % (Manual) 3 (0-5) % Urine Color Yellow (YELLOW) Urine Appearance Slightly cloudy (CLEAR) Urine pH 6.0 (5.0-6.5) Ur Specific [place] 1.020 (1.010-1.025) Urine Protein Negative (NEGATIVE) mg/dL Urine Glucose (UA) 50 H (NEGATIVE) mg/dL Urine Ketones Negative (NEGATIVE) mg/dL Urine Occult Blood Trace (NEGATIVE) Urine Nitrite Negative (NEGATIVE) Urine Bilirubin Negative (NEGATIVE) Urine Urobilinogen 4 H (NEGATIVE) mg/dL Ur Leukocyte Esterase Negative (NEGATIVE) Urine RBC 5-10 (0) Urine WBC 0-5 (0) Ur Squamous Epith Cells Rare (NS,R,O) Urine Bacteria Few H (NS) Med Orders - Current: Current Medications Albuterol (Proventil Neb Soln) 2.5 mg NEB Q4H [facility] Last Admin: 01/26/17 07:40 Dose: 2.5 mg Guaifenesin/Codeine Phosphate (Robitussin Ac) 5 ml PO Q6H PRN PRN Reason: Cough Last Admin: 01/25/17 08:17 Dose: 5 ml Levofloxacin/Dextrose 750 mg/ (Premix) 150 mls @ 100 mls/hr IV Q24H [facility] Last Admin: 01/25/17 15:59 Dose: 100 mls/hr Sodium Chloride (Normal Saline) 250 mls @ 125 mls/hr IV ASDIRECTED [facility] Last Admin: 01/25/17 16:00 Dose: 125 mls/hr Ibuprofen (Motrin) 600 mg PO Q6H PRN PRN Reason: Pain (mild 1-3) Last Admin: 01/26/17 04:01 Dose: 600 mg Ondansetron HCl (Zofran Odt) 4 mg PO Q4H PRN PRN Reason: nausea, able to take PO Sodium Chloride (Saline Flush) 10 ml FLUSH ASDIRECTED PRN PRN Reason: Keep Vein Open Trazodone HCl (Trazodone) 50 mg PO BEDTIME [facility] Last Admin: 01/25/17 22:11 Dose: 50 mg Discontinued Medications Albuterol (Proventil Neb Soln) 2.5 mg NEB Q4H PRN PRN Reason: Shortness Of Breath/wheezing Guaifenesin/Codeine Phosphate (Robitussin Ac) Confirm Administered Dose 5 ml .ROUTE .STK-MED ONE Stop: 01/23/17 18:01 Last Admin: 01/23/17 18:20 Dose: Not Given Lactated Ringer's (Ringers, Lactated) 1,000 mls @ 1,000 mls/hr IV BOLUS ONE Stop: 01/23/17 16:09 Last Admin: 01/23/17 15:21 Dose: 1,000 mls/hr Levofloxacin/Dextrose 750 mg/ (Premix) 150 mls @ 100 mls/hr IV Q24H [facility] Last Admin: 01/23/17 15:51 Dose: 100 mls/hr Sodium Chloride (Normal Saline) 1,000 mls @ 125 mls/hr IV ASDIRECTED [facility] Last Admin: 01/25/17 03:59 Dose: 150 mls/hr Ibuprofen (Motrin) Confirm Administered Dose 600 mg .ROUTE .STK-MED ONE Stop: 01/23/17 18:02 Last Admin: 01/23/17 18:20 Dose: Not Given Iopamidol (Isovue-370 (76%)) 75 ml IV ASDIRECTED ONE Stop: 01/25/17 13:18 Last Admin: 01/25/17 13:36 Dose: 71 ml Sodium Chloride (Saline Flush) 10 ml FLUSH ASDIRECTED PRN PRN Reason: Keep Vein Open Last Admin: 01/23/17 15:36 Dose: 10 ml Trazodone HCl (Trazodone) 50 mg PO BEDTIME [facility] - Exam Quality Assessment: No: Supplemental Oxygen General: Alert Lungs: Normal Respiratory Effort, Crackles Cardiovascular: Regular Rate, Regular Rhythm - Problem List & Annotations (1) Pneumonia SNOMED Code(s): 520240317 Code(s): J18.9 - PNEUMONIA, UNSPECIFIED ORGANISM Status: Acute Current Visit: Yes Qualifiers: Pneumonia type: due to unspecified organism Laterality: bilateral Lung location: unspecified part of lung Qualified Code(s): J18.9 - Pneumonia, unspecified organism - Problem List Review Problem List Initiated/Reviewed/Updated: Yes - Plan Plan:: I will discharge him home on oral Levaquin. I've instructed him strictly to be seen on Sunday for repeat chest x-ray. Return to the ED with any worsening symptoms. He has requested a work note, and I agree that he can stay off work at least until next Sunday.
--- NOTE | 2017-01-27 01:54 | DISCH ---
DISCHARGE DATE: 01/26/2017 REASON FOR ADMISSION: Community-acquired pneumonia. DISCHARGE DIAGNOSIS: Community-acquired pneumonia. BRIEF HISTORY: This is a 36-year-old male, previously healthy, came in complaining of weakness, dehydration, diaphoresis, headaches, fever, and chills. He also complained of decreased appetite and a cough. He was short of breath. His daughter had pneumonia two weeks prior. Chest x-ray revealed significant pneumonia, and he was admitted for IV antibiotics. He was given Levaquin 750 mg IV. He was treated also with IV fluids. The chest x-ray showed suspicious infiltration, possibly fungal disease; however, CT report also did mention that CT was atypical findings. Clinically, however, he improved, and he had no fever, no white cell count, and oxygenation remained above 91% on room air. I discharged him home on Levaquin orally. His blood cultures being negative, but I advised him to make an appointment with the PCP to be seen on Sunday and also to consider Infectious Disease consultation. I spent more than 35 minutes in discharge with the patient. /[id number] HANH/THERESA
== END 2017-01-26 11:42 | disposition home or self-care (01) | DRG 194 ==
LOC: FB.ED 14:38 → FB.MS 16:31
PROVIDERS: ADMIT Family Medicine; ATTEND Family Medicine
DX: J18.9 Pneumonia, unspecified organism (principal); E87.1 Hypo-osmolality and hyponatremia; F17.210 Nicotine dependence, cigarettes, uncomplicated; E86.0 Dehydration; R31.9 Hematuria, unspecified
CPT/HCPCS: 36415; 71020; 71260; 80048; 80053; 80305; 81001; 83605; 84443; 84484; 85025; 85027; 85379; 87040; 94150; 94640; 94640-76; 96365; 99285; A9270-GY; J1956; J7040; J7050; J7120; Q9967